=== PATIENT | female | born 1995 | race Caucasian/White ===

== ENCOUNTER 2021-11-11 18:19 | Inpatient (IN) | payer OTHER ==
[~2021-11-11] VITALS: Ht 157.5 cm; Wt 90.0 kg
[2021-11-13] VITALS (46 sets, daily range): BP systolic 106–140; BP diastolic 53–77; PULSE 63–99; TEMP 97.8–99
--- NOTE | 2021-11-13 06:20 | NUR ---
0620 - PATIENT AMBULATORY TO LDR6 ACCOMPANIED BY SPOUSE. PATIENT DENIES FEELING CONTRACTIONS, LEAKING OF FLUID OR BLOODY SHOW. PATIENT ORIENTED TO ROOM. PLAN OF CARE DISCUSSED. PATIENT CHANGES INTO GOWN. 0626 - PATIENT ON MONITOR. CONSENTS REVIEWED AND SIGNED. 0635 - SVE PERFORMED BY THIS RN. 0655 - IV STARTED. LABS DRAWN ORDERED. PLAN OF CARE REVIEWED. CARE ONGOING.
[2021-11-13] MEDS ORDERED: PRENATAL TABLET PO (06:26)
[2021-11-13 07:32] LABS: BASO % 0.4 % (0.0-2.0); EOS # 0.1 K/mm3 (0.0-0.7); EOS % 0.9 % (0.0-4.0); GRAN # 7.1 K/mm3 (1.4-6.5); HEMATOCRIT 37.2 % (37.0-47.0); HEMOGLOBIN 12.2 g/dl (12.5-16.0); LYMPH % 27.4 % (20.0-51.0); MEAN CELL VOLUME 78 fl (80.0-100.0); MEAN CORPUSCULAR HEMOGLOBIN 26 pg (27-31); MEAN CORPUSCULAR HGB CONC 33 g/dl (33.0-37.0); MEAN PLATELET VOLUME 11.2 fl (7.4-10.4); MONO # 0.6 K/mm3 (0.1-0.6); MONO % 5.7 % (1.7-9.3); PLATELET COUNT 226 K/mm3 (130-400); RED BLOOD COUNT 4.76 M/mm3 (4.10-5.30); REDCELL DISTRIBUTION WIDTH-CV 14.8 % (11.5-14.5)
--- NOTE | 2021-11-13 13:52 | NUR ---
1352 - SULEIMAN GARCIA AT BEDSIDE. PATIENT POSITIONED SITTING EDGE OF BED FOR EPIDURAL PLACEMENT. FHR TRACING POOR DUE TO MATERNAL POSITION. 1357 - SINGLE SHOT GIVEN PER MOLDING PRESS OPERATOR. 1405 - PATIENT REPOSITIONED. CARE ONGOING.
--- NOTE | 2021-11-13 14:10 | NUR ---
1410 - VARIABLE DECEL NOTED ON EFM. PATIENT POSITIONED IN LL. FHR RETURNS TO BASELINE. 1414 - VARIABLE DECEL NOTED. BOLUS INITIATED. PATIENT POSITIONED RL. 1416 - VARIABLES CONTINUE. PATIENT POSITIONED IN LL. 1418 - VARIABLES CONTINUE. PITOCIN OFF. 1420 - VARIABLE WORSEN. NICRN TO BEDSIDE TO ASSIST WITH PATIENT POSITIONING. PATIENT POSITIONED KNEES CHEST. 1423 - MD ISA AT BEDSIDE. VARIABLE DECEL CONTINUES. SCALP STIM PERFORMED BY MD ISA WITH FHR RETURN TO BASELINE OF 120. SVE PERFORMED BY . /-2. MD ISA PLACES SCALP ELECTRODE. FHR RETURNS TO BASELINE. PATIENT POSITIONED IN LL. WILL CONTINUE TO MONITOR.
--- NOTE | 2021-11-13 16:34 | NUR ---
1634 - VARIABLE DECEL NOTED WITH QUICK RETURN TO BASELINE. CONTINUE MONITORING. 1640 - DECELS AGAIN NOTED. PATEINT REPOSITIONED LL RLS. 1645 - DECEL AGAIN NOTED. PITOCIN OFF. SVE PERFORMED BY HENRY LUCERO. . 1648 - PATIENT REPOSITIONED TO [facility]. FHR RETURN TO BASELINE. WILL CONTINUE TO MONITOR.
--- NOTE | 2021-11-13 17:18 | NUR ---
1718 - LATE DECEL NOTED. PATIENT POSITIONED LL. 1721 - VARIABLE DECEL NOTED. PATIENT POSITIONED RL. 1725 - VARIABLE DECEL AGAIN NOTED. PITOCIN OFF. 172 - SVE PERFORMED BY HENRY HAMPTON. 1730 - PATIENT POSITIONED IN [facility]. WILL CONTINUE TO MONITOR.
--- NOTE | 2021-11-13 18:35 | NUR ---
EPIDURAL CATH CAME OUT. TAPE WAS COMING OFF. [facility]SE [employer]SPORTATION DEPARTMENT HEAD HERE TO REPLACE THE EPIDURAL. PT TO SITTING POSITION. THE CATH WAS REMOVED AND REPLACED WITHOUT INCIDENT.
--- NOTE | 2021-11-13 19:25 | NUR ---
CHANGED PT POSITION TO HIGH FOWLERS POSITON. PT STATES THE NEW EPIDURAL IS WORKING WELL AND SHE DOES NOT HAVE ANY PAIN AT THIS TIME. PILLOWS PLACED FOR COMFORT.
--- NOTE | 2021-11-13 20:26 | NUR ---
DR SINGH PHONED IN FOR UPDATE. UPDATE ON EPIDURAL REPLACEMENT, FHR DECELS. PT'S POSITONED CHANGES, PT FEELING PAIN ON RIGHT SIDE AND JOSE BEARDEN HERE TO CHECK ON PT. WILL RECHECK CERVIX AT 2100.
--- NOTE | 2021-11-13 21:03 | NUR ---
DR SINGH CALLED AND GIVEN AN UPDATE ON THE VAG EXAM OF . WILL CONTINUE WITH THE PLAN OF CARE.
--- NOTE | 2021-11-13 21:21 | NUR ---
PT C/O FEELING PAIN ON THE RIGHT SIDE AGAIN. RATES IT AT 7-8 ON PAIN SCALE. PT IS ABLE TO MOVE HER RIGHT LEG AND RAISE THAT SIDE OF HER BODY. THE LEFT SIDE IS NUMB AND SHE FEELS NO PAIN ON THAT SIDE. JOSE BEARDEN NOTIFIED.
--- NOTE | 2021-11-13 21:38 | NUR ---
PT VOMITING, COOL CLOTHES TO NECK AND FORHEAD. THEN PT SITTING UP FOR EPIDURAL REPLACEMENT. JOSE BEARDEN HERE IN ROOM. THE OLD EPIDURAL WAS REMOVED. REPLACED IT AND SINGLE SHOT WAS GIVEN AT 2138. PT TOLERATED PROCEDURE VERY WELL.
--- NOTE | 2021-11-13 22:28 | NUR ---
PT IN TO SEE PT. PT C/O STILL FEELING PAIN ON THE RIGHT SIDE. PT IS CRYING WITH UC'S. DECISION MADE TO REPLACE THE EPIDURAL.
--- NOTE | 2021-11-13 22:36 | NUR ---
PT IS NOW SITTING UP ON THE BED WITH A SMILE ON HER FACE. SHE IS NOT FEELING ANY UC'S IN HER ABD OR BACK. SHE IS HAPPY AND WILL TRY TO GET SOME SLEEP.
[2021-11-14] VITALS (33 sets, daily range): BP systolic 106–152; BP diastolic 57–95; PULSE 68–120; TEMP 97.2–98.4
--- NOTE | 2021-11-14 00:03 | NUR ---
PT WAS LYING DOWN, CHANGED POSITON TO A RIGHT TILT WITH PILLOWS PLACED FOR COMFORT. PILLOW PLACED BETWEEN LEGS FOR COMFORT.
--- NOTE | 2021-11-14 00:10 | NUR ---
FHR LATE DECELS NOTED. TRIED CHANGING POSITONS. O2 ON 10 L VIA MASK. PT'S POSITON CHANGED TO HIGH FOWLERS. FHR 120'S MOD VARIBILITY.
--- NOTE | 2021-11-14 00:32 | NUR ---
DR SINGH NOTIFIED OF THE FHR LATE DECELS, OXYGEN ON VIA MASK, PITOCIN IS OFF. PT IS NOW IN HIGH FOWLERS POSITION. WILL CONTINUE TO MONITOR AND REEVALUATE. AT THIS TIME FHR IS 118 WITH MODERATE VARIBILITY.
--- NOTE | 2021-11-14 01:00 | NUR ---
PT IN HIGH FOWLERS POSITION. SLEEPING WITH PILLOWS PLACED FOR COMFORT. FHR 125, ACCELS, NO DECELS, MODERATE VARIBILITY.
--- NOTE | 2021-11-14 01:15 | NUR ---
PT SLEEPING IN HIGH FOWLERS POSITION. STATES SHE IS NOT FEELING ANY PAIN OR PRESSURE AT THIS TIME. OXYGEN MASK OFF. PITOCIN RESTARTED AT 2 MU VIA PUMP.
--- NOTE | 2021-11-14 03:40 | NUR ---
DR SINGH PHONED IN UPDATE GIVEN ON VAG EXAM FHR REACTIVE, GOOD ACCELS. WILL RECHECK CERVIX IN 1 HR AND GIVE HER ANOTHER UPDATE.
--- NOTE | 2021-11-14 04:35 | NUR ---
ROLES GIVEN UPDATE ON CERVICAL EXAM. SHE IS COMING IN TO EVALUATE AND TALK TO PT.
--- NOTE | 2021-11-14 04:48 | NUR ---
ROLES HERE TO EVALUATE PT. SVE. . TRIAL PUSHING DONE FOR 40 MINS. THERE WAS NO DECENT OF THE BABY AND SOME SWELLING AND CAPUT NOTED. 0550. ROLES BACK IN THE ROOM SVE NO CHANGE IN CERVIX OF DECENT. PLAN OF CARE WAS DISCUSSED WITH THE PATIENT AND HER FAMILY. PT VERBALIZED UNDERSTANDING AND AGREED TO HAVE A C/S/ THE OR TEAM WAS NOTIFIED.
--- NOTE | 2021-11-14 06:00 | NUR ---
ABD CLIPPED. [place] CATH EMPTIED OF 1000 CC NETTIE URINE WITH SLIGHT BLOOD TINGE. DR SINGH AWARE OF THE BLOOD.
--- NOTE | 2021-11-14 15:00 | NUR ---
Pt up to the bathroom with stand-by assist and without complications. Kern removed. Arianne-care done. Pt up and ambulating in the room. Plan of care reviewed.
[2021-11-15 07:29] VITALS: BP 104/53; PULSE 69; TEMP 97.4
--- NOTE | 2021-11-15 09:36 | NUR ---
Initial visit; Family thanked [employer] for offering congratulations and God's blessings for the of their son. [employer] Builder thanked family for choosing [facility].
[2021-11-15] MEDS ORDERED: ROXICODONE 55 MG/TAB PO (10:39)
[2021-11-15] MEDS ORDERED: IBU800 M1 PO (10:39)
[2021-11-15 16:30] VITALS: BP 115/62; PULSE 74; TEMP 98
[2021-11-15 18:30] VITALS: BP 124/52; PULSE 69; TEMP 97.4
[2021-11-16 06:45] VITALS: BP 115/71; PULSE 69; TEMP 97.8
== END 2021-11-16 11:20 | disposition home or self-care (01) | DRG 788 ==
LOC: LDR 11-13 06:08 → OB 11-13 06:08 → LDR 11-13 18:19 → OB 11-14 12:12
PROVIDERS: ADMIT Obstetrics & Gynecology
PROC: 10D00Z1 Extraction of Products of Conception, Low, Open Approach (ICD-10-PCS; principal; 2021-11-14)
DX: O48.0 Post-term pregnancy (principal); Z3A.40 40 weeks gestation of pregnancy; Z37.0 Single live birth; O77.0 Labor and delivery complicated by meconium in amniotic fluid; O99.824 Streptococcus B carrier state complicating childbirth; O76 Abnormality in fetal heart rate and rhythm complicating labor and delivery; O99.214 Obesity complicating childbirth
CPT/HCPCS: J0171; J0690; J2250; J2370; J2400; J2405; J2540; J2590; J2795; J7120

== ENCOUNTER 2023-06-12 16:32 | Emergency (ER) | payer OTHER ==
[~2023-06-12] VITALS: Ht 157.5 cm; Wt 88.6 kg
[~2023-06-12 16:32] MED LIST: IBU800 M1 PO; PRENATAL TABLET PO; ROXICODONE 55 MG/TAB PO
[2023-06-12 16:36] VITALS: BP 132/68; PULSE 87; TEMP 98
== END 2023-06-12 19:04 | disposition left against medical advice (07) ==
LOC: COL.ER 16:32
DX: R06.02 Shortness of breath (principal); R07.89 Other chest pain

== ENCOUNTER 2023-06-18 14:49 | Emergency (ER) | payer OTHER ==
[~2023-06-18] VITALS: Ht 157.5 cm; Wt 88.6 kg
[2023-06-18 15:09] VITALS: TEMP 98.1
[2023-06-18 15:55] LABS: BASO % 0.1 % (0.0-2.0); GRAN # 8.7 K/mm3 (1.4-6.5); HEMATOCRIT 44.5 % (37.0-47.0); HEMOGLOBIN 14.2 g/dl (12.5-16.0); LYMPH # 0.9 K/mm3 (1.2-3.4); LYMPH % 9.5 % (20.0-51.0); MEAN CELL VOLUME 84 fl (80.0-100.0); MEAN CORPUSCULAR HEMOGLOBIN 27 pg (27-31); MEAN CORPUSCULAR HGB CONC 32 g/dl (33.0-37.0); MEAN PLATELET VOLUME 10.7 fl (7.4-10.4); MONO # 0.1 K/mm3 (0.1-0.6); MONO % 1.1 % (1.7-9.3); PLATELET COUNT 291 K/mm3 (130-400); RED BLOOD COUNT 5.31 M/mm3 (4.10-5.30); REDCELL DISTRIBUTION WIDTH-CV 14.2 % (11.5-14.5)
[2023-06-18] MEDS ORDERED: NS 1,000 ML IV ONE (16:00)
[2023-06-18 16:25] LABS: ALBUMIN 4.4 gm/dL (3.5-5.0); BILIRUBIN,TOTAL 0.3 mg/dL (0.2-1.2); CALCIUM 10.1 mg/dL (8.4-10.2); CREATININE, serum 0.84 mg/dL (0.57-1.11); POTASSIUM 3.4 mmol/L (3.5-4.5); TOTAL PROTEIN 8.2 gm/dL (6.2-8.1)
[2023-06-18 16:33] LABS: TROPONIN-I 0.011 ng/mL (0.00-0.033)
[2023-06-18] MEDS ORDERED: Iohexol 300 - 100 ML VIAL IV ONE (17:06)
[2023-06-18] MEDS ORDERED: NS 100 ML IV SCH (17:07)
[2023-06-18 18:17] VITALS: BP 110/63; PULSE 70
== END 2023-06-18 18:17 | disposition home or self-care (01) ==
LOC: COL.ER 14:49
PROVIDERS: Personal Emergency Response Attendant
DX: R07.89 Other chest pain (principal); R06.02 Shortness of breath
CPT/HCPCS: J7030; Q9967

== ENCOUNTER 2023-06-22 21:46 | Emergency (ER) | payer OTHER ==
[~2023-06-22] VITALS: Ht 157.5 cm; Wt 88.6 kg
[2023-06-22 22:04] VITALS: TEMP 97.7
[2023-06-22] MEDS ORDERED: Ondansetron 4 MG/2 ML VIAL IV ONE (22:45)
[2023-06-22] MEDS ORDERED: Meclizine 25 MG TAB PO ONE (22:45)
[2023-06-22] MEDS ORDERED: NS 1,000 ML IV ONE (22:45)
[2023-06-22 23:27] LABS: BASO # 0.1 K/mm3 (0.0-0.2); BASO % 0.5 % (0.0-2.0); EOS # 0.2 K/mm3 (0.0-0.7); EOS % 1.7 % (0.0-4.0); GRAN # 5.4 K/mm3 (1.4-6.5); GRAN % 47.8 % (42.2-75.2); HEMOGLOBIN 12.2 g/dl (12.5-16.0); LYMPH % 44.2 % (20.0-51.0); MEAN CELL VOLUME 83 fl (80.0-100.0); MEAN CORPUSCULAR HEMOGLOBIN 27 pg (27-31); MEAN CORPUSCULAR HGB CONC 33 g/dl (33.0-37.0); MEAN PLATELET VOLUME 10.2 fl (7.4-10.4); MONO # 0.6 K/mm3 (0.1-0.6); MONO % 5.4 % (1.7-9.3); PLATELET COUNT 235 K/mm3 (130-400); RED BLOOD COUNT 4.45 M/mm3 (4.10-5.30)
[2023-06-22 23:47] LABS: ALANINE AMINOTRANSFERASE 12 U/L (0-55); ALBUMIN 3.6 gm/dL (3.5-5.0); ALKALINE PHOSPHATASE 65 U/L (40-150); ANION GAP 8 mmol/L (7-16); AST,SGOT 16 U/L (5-34); BILIRUBIN,TOTAL 0.2 mg/dL (0.2-1.2); BLOOD UREA NITROGEN 12 mg/dL (7-19); CALCIUM 8.9 mg/dL (8.4-10.2); CHLORIDE 108 mmol/L (98-107); CREATININE, serum 0.77 mg/dL (0.57-1.11); GLUCOSE 92 mg/dL (70-99); POTASSIUM 3.2 mmol/L (3.5-4.5); SODIUM 141 mmol/L (136-145); TOTAL PROTEIN 6.1 gm/dL (6.2-8.1)
[2023-06-23 00:07] LABS: TSH w REFLEX 2.732 uIU/mL (0.350-4.940)
[2023-06-23 00:10] LABS: TROPONIN-I < 0.010 ng/mL (0.00-0.033)
[2023-06-23 00:59] VITALS: BP 101/52; PULSE 88
== END 2023-06-23 01:00 | disposition home or self-care (01) ==
LOC: COL.ER 21:46
PROVIDERS: Nurse Practitioner
DX: R00.2 Palpitations (principal); R42 Dizziness and giddiness; R11.0 Nausea
CPT/HCPCS: J2405; J7030